=== PATIENT | male | born 1980 | race Caucasian/White ===

== ENCOUNTER 2022-07-18 12:18 | Emergency (ER) | payer MEDICARE, MEDICAID ==
--- NOTE | 2022-07-18 12:29 | ED Fall/Injury ---
General Chief Complaint: Chest Wall Stated Complaint: CHEST PAIN History of Present Illness Date Seen by Provider: Jul 18, 2022 Time Seen by Provider: 12:27 Initial Comments 42-year-old male with PMH of mental disability/CAD/3 stents placed 5 years ago/ DM2/HTN/HLD, is here with complaints of right shoulder pain and chest wall tenderness when he touches it, for the past 3 weeks after he had a fall rolling off the bed. Patient denies actual chest pain, palpitations, shortness of breath, fever, URI symptoms, abdominal pain. Allergies and Home Medications Allergies Coded Allergies: No Known Drug Allergies (Unverified , 07/18/22) Patient Home Medication List Home Medication List Reviewed: Yes Review of Systems Review of Systems Constitutional: no symptoms reported Eyes: No Symptoms Reported Ears, Nose, Mouth, Throat: no symptoms reported Respiratory: no symptoms reported Cardiovascular: no symptoms reported Gastrointestinal: no symptoms reported Genitourinary: no symptoms reported Musculoskeletal: joint pain Skin: no symptoms reported Psychiatric/Neurological: No Symptoms Reported Physical Exam Vital Signs Vital Signs - First Documented 07/18/22 12:20 Temp 36.7 Pulse 75 Resp 16 B/P (MAP) 112/76 (88) Pulse Ox 97 O2 Delivery Room Air Capillary Refill : Height, Weight, BMI Height: '" Weight: lbs. oz. kg; BMI Method: General Appearance: WD/WN, no apparent distress HEENT: PERRL/EOMI Neck: non-tender, full range of motion, supple, normal inspection Cardiovascular: regular rate, rhythm, no edema, no murmur Respiratory: lungs clear, normal breath sounds, no respiratory distress Gastrointestinal: non tender, soft Back: normal inspection, no vertebral tenderness Extremities: normal range of motion, non-tender, normal inspection Neurologic/Psychiatric: no motor/sensory deficits, alert, normal mood/affect, oriented x 3 Skin: normal color Progress/Results/Core Measures Results/Orders Lab Results Laboratory Tests Test 07/18/22 12:30 07/18/22 13:20 Range/Units White Blood Count 6.7 4.3-11.0 10^3/uL Red Blood Count 5.10 4.30-5.52 10^6/uL Hemoglobin 15.4 13.3-17.7 g/dL Hematocrit 45 40-54 % Mean Corpuscular Volume 88 80-99 fL Mean Corpuscular Hemoglobin 30 25-34 pg Mean Corpuscular Hemoglobin Concent 34 32-36 g/dL Red Cell Distribution Width 13.1 10.0-14.5 % Platelet Count 193 130-400 10^3/uL Mean Platelet Volume 10.0 9.0-12.2 fL Neutrophils (%) (Auto) 48 42-75 % Lymphocytes (%) (Auto) 38 12-44 % Monocytes (%) (Auto) 9 0-12 % Eosinophils (%) (Auto) 4 0-10 % Basophils (%) (Auto) 1 0-10 % Neutrophils # (Auto) 3.2 1.8-7.8 X 10^3 Lymphocytes # (Auto) 2.6 1.0-4.0 X 10^3 Monocytes # (Auto) 0.6 0.0-1.0 X 10^3 Eosinophils # (Auto) 0.3 0.0-0.3 10^3/uL Basophils # (Auto) 0.0 0.0-0.1 10^3/uL Prothrombin Time 11.8 L 12.2-14.7 SEC INR Comment 0.8 0.8-1.4 Activated Partial Thromboplast Time 26 24-35 SEC D-Dimer 0.35 0.00-0.49 UG/ML Sodium Level 137 135-145 MMOL/L Potassium Level 4.5 3.6-5.0 MMOL/L Chloride Level 103 98-107 MMOL/L Carbon Dioxide Level 26 21-32 MMOL/L Anion Gap 8 5-14 MMOL/L Blood Urea Nitrogen 12 7-18 MG/DL Creatinine 0.78 0.60-1.30 MG/DL Estimat Glomerular Filtration Rate 114 BUN/Creatinine Ratio 15 Glucose Level 344 H 70-105 MG/DL Calcium Level 9.3 8.5-10.1 MG/DL Corrected Calcium 9.1 8.5-10.1 MG/DL Magnesium Level 1.8 1.6-2.4 MG/DL Total Bilirubin 0.7 0.1-1.0 MG/DL Aspartate Amino Transf (AST/SGOT) 13 5-34 U/L Alanine Aminotransferase (ALT/SGPT) 28 0-55 U/L Alkaline Phosphatase 76 40-136 U/L Troponin I < 0.30 <0.30 NG/ML Total Protein 6.6 6.4-8.2 GM/DL Albumin 4.3 3.2-4.5 GM/DL Urine Color YELLOW Urine Clarity SLT CLOUDY Urine pH 5.0 5-9 Urine Specific [place] 1.020 1.016-1.022 Urine Protein NEGATIVE NEGATIVE Urine Glucose (UA) 3+ H NEGATIVE Urine Ketones NEGATIVE NEGATIVE Urine Nitrite NEGATIVE NEGATIVE Urine Bilirubin NEGATIVE NEGATIVE Urine Urobilinogen 0.2 < = 1.0 MG/DL Urine Leukocyte Esterase NEGATIVE NEGATIVE Urine RBC (Auto) NEGATIVE NEGATIVE Urine RBC NONE /HPF Urine WBC 0-2 /HPF Urine Squamous Epithelial Cells RARE /HPF Urine Crystals NONE /LPF Urine Bacteria NEGATIVE /HPF Urine Casts NONE /LPF Urine Mucus NEGATIVE /LPF Urine Culture Indicated NO Urine Opiates Screen NEGATIVE NEGATIVE Urine Oxycodone Screen NEGATIVE NEGATIVE Urine Methadone Screen NEGATIVE NEGATIVE Urine Propoxyphene Screen NEGATIVE NEGATIVE Urine Barbiturates Screen NEGATIVE NEGATIVE Ur Tricyclic Antidepressants Screen NEGATIVE NEGATIVE Urine Phencyclidine Screen NEGATIVE NEGATIVE Urine Amphetamines Screen NEGATIVE NEGATIVE Urine Methamphetamines Screen NEGATIVE NEGATIVE Urine Benzodiazepines Screen NEGATIVE NEGATIVE Urine Cocaine Screen NEGATIVE NEGATIVE Urine Cannabinoids Screen NEGATIVE NEGATIVE My Orders Orders - HAY SINGLETON MD Chest 1 View Ap/Pa Only (07/18/22 12:39) Elbow 3 View Right (07/18/22 12:39) Shoulder 3 View Right (07/18/22 12:39) Cbc With Automated Diff (07/18/22 12:40) Comprehensive Metabolic Panel (07/18/22 12:40) Fibrin Degradation Products (07/18/22 12:40) Drug Screen Stat (Urine) (07/18/22 12:40) Magnesium (07/18/22 12:40) Protime With Inr (07/18/22 12:40) Partial Thromboplastin Time (07/18/22 12:40) Ua Culture If Indicated (07/18/22 12:40) Troponin I Fs (07/18/22 12:40) Ekg Tracing (07/18/22 12:40) Continuous Ekg Monitoring (07/18/22 12:40) Ketorolac Injection (Toradol Injection) (07/18/22 14:45) Vital Signs/I&O 07/18/22 07/18/22 12:20 13:56 Temp 36.7 36.7 Pulse 75 72 Resp 16 16 B/P (MAP) 112/76 (88) 122/68 Pulse Ox 97 99 O2 Delivery Room Air Room Air Progress Progress Note : Progress Note 1. FALL/ RIGHT SHOULDER AND CHEST MUSCLE STRAIN: - CXR: normal - Labs unremarkable - Troponin undetected - EKG: Nonischemic -Toradol 30 mg IM stat -Advised Lidoderm patches and Tylenol and ibuprofen as needed for pain -Follow-up with PCP in the next 7 to 10 days -The patient was seen in the ED, and treated appropriately to presentation at a specific point in time. Patient is informed that there is a possibility that disease and illness can evolve and change in acuity rapidly or slowly after patient is discharged from the ER. Precautionary advice given to the patient for immediate return to ER if symptoms worsen or do not resolve, and to seek emergency care sooner rather than later. Pt also advised on the importance of PCP follow up and compliance with management and follow up plan with PCP and/or specialist, as this is part of the management plan. Pt verbally expressed understanding. Initial ECG Impression Date: Jul 18, 2022 Initial ECG Impression Time: 12:23 Initial ECG Rate: 69 Initial ECG Rhythm: Normal Sinus Initial ECG Intervals: Normal Initial ECG Impression: Normal Initial ECG Comparisson: No Previous ECG Available Diagnostic Imaging Diagonstic Imaging: Xray Plain Films/CT/US/NM/MRI: chest Comments [facility] [place] NAME: DAVID GAYTAN Jaree REC#: [id number] PT STATUS: REG ER : 1980 PHYSICIAN: HAY SINGLETON MD ADMIT DATE: 07/18/22/ER FS Draft Date of Exam:07/18/22 CHEST 1 VIEW AP/PA ONLY INDICATION: Chest pain and fall Frontal chest obtained at 1252 hours p.m. Heart and mediastinal silhouette are normal in appearance. The lungs are clear. There is no pneumothorax or pleural fluid. IMPRESSION: Negative chest. Dictated on workstation # [id number] Dict: 07/18/22 1323 Trans: 07/18/22 1324 [facility] [id number] Interpreted by: BG THOMPSON MD Electronically signed by: [facility] [place] NAME: DAVID GAYTAN MED REC#: [id number] PT STATUS: REG ER : 1980 PHYSICIAN: HAY SINGLETON MD ADMIT DATE: 07/18/22/ER FS Draft Date of Exam:07/18/22 ELBOW 3 VIEW RIGHT INDICATION: Fall with right elbow pain. AP, oblique, and lateral views of the right elbow are obtained. No fracture or acute bone abnormality is seen. Joint spaces are unremarkable. IMPRESSION: Negative right elbow. Dictated on workstation # [id number] Dict: 07/18/22 1257 Trans: 07/18/22 1300 [facility] [id number] Interpreted by: BG THOMPSON MD Electronically signed by: [facility] [place] [place] NAME: DAVID GAYTAN [facility] REC#: [id number] PT STATUS: REG ER : 1980 PHYSICIAN: HAY SINGLETON MD ADMIT DATE: 07/18/22/ER FS Draft Date of Exam:07/18/22 SHOULDER 3 VIEW RIGHT INDICATION: Chest pain and right shoulder pain, fall. TIME OF EXAM: 12:53 p.m. FINDINGS: Three views of the right shoulder were obtained. Glenohumeral and acromioclavicular alignment are normal. Acromiohumeral space is normal. No fracture or dislocation is identified. IMPRESSION: No acute abnormality is detected. Dictated on workstation # [id number] Dict: 07/18/22 1325 Trans: 07/18/22 1330 [facility] [id number] Interpreted by: VIRGIL VALENZUELA MD Electronically signed by: Departure Impression Primary Impression: Muscle strain of right shoulder Qualified Codes: S46.911A - Strain of unspecified muscle, fascia and tendon at shoulder and upper arm level, right arm, initial encounter Additional Impression: Chest wall muscle strain Qualified Codes: S29.011A - Strain of muscle and tendon of front wall of thorax, initial encounter Disposition: 01 HOME, SELF-CARE Condition: Stable Departure-Patient Inst. Referrals: VINCENT RIVERS DO (PCP) Primary Care Physician Patient Instructions: Muscle Strain ED Add. Discharge Instructions: -Advised Lidoderm patches and Tylenol and ibuprofen as needed for pain -Follow-up with PCP in the next 7 to 10 days All discharge instructions reviewed with patient and/or family. Voiced understanding. HAY SINGLETON MD Jul 18, 2022 12:29
[2022-07-18 12:51] LABS: HEMATOCRIT 45 % (40-54); HEMOGLOBIN 15.4 g/dL (13.3-17.7); MEAN CORPUSCULAR HEMOGLOBIN 30 pg (25-34); MEAN CORPUSCULAR HGB CONC 34 g/dL (32-36); MEAN CORPUSCULAR VOLUME 88 fL (80-99); PLATELET COUNT 193 10^3/uL (130-400); WHITE BLOOD COUNT 6.7 10^3/uL (4.3-11.0)
[2022-07-18 12:52] LABS: BASOPHILS % (AUTO) 1 % (0-10); EOSINOPHILS # (AUTO) 0.3 10^3/uL (0.0-0.3); EOSINOPHILS % (AUTO) 4 % (0-10); LYMPHOCYTES # (AUTO) 2.6 X 10^3 (1.0-4.0); LYMPHOCYTES % (AUTO) 38 % (12-44); MONOCYTES # (AUTO) 0.6 X 10^3 (0.0-1.0); MONOCYTES % (AUTO) 9 % (0-12); NEUTROPHILS # (AUTO) 3.2 X 10^3 (1.8-7.8); NEUTROPHILS % (AUTO) 48 % (42-75)
--- NOTE | 2022-07-18 13:00 | Diagnostic Imaging Report ---
INDICATION: Fall with right elbow pain. AP, oblique, and lateral views of the right elbow are obtained. No fracture or acute bone abnormality is seen. Joint spaces are unremarkable. IMPRESSION: Negative right elbow. Dictated by: Dictated on workstation # [id number]
[2022-07-18 13:10] LABS: ALANINE AMINOTRANSFERASE 28 U/L (0-55); ALBUMIN 4.3 GM/DL (3.2-4.5); ALKALINE PHOSPHATASE 76 U/L (40-136); BILIRUBIN,TOTAL 0.7 MG/DL (0.1-1.0); BUN/CREATININE RATIO 15; CALCIUM 9.3 MG/DL (8.5-10.1); CARBON DIOXIDE 26 MMOL/L (21-32); CHLORIDE 103 MMOL/L (98-107); CREATININE SERUM 0.78 MG/DL (0.60-1.30); GFR ESTIMATED 114; GLUCOSE 344 MG/DL (70-105); MAGNESIUM 1.8 MG/DL (1.6-2.4); POTASSIUM 4.5 MMOL/L (3.6-5.0); SODIUM 137 MMOL/L (135-145); TOTAL PROTEIN 6.6 GM/DL (6.4-8.2)
[2022-07-18 13:12] LABS: INR 0.8 (0.8-1.4); PROTHROMBIN TIME PATIENT 11.8 SEC (12.2-14.7)
[2022-07-18 13:13] LABS: FIBRIN DEGRADATION PRODUCTS 0.35 UG/ML (0.00-0.49)
--- NOTE | 2022-07-18 13:25 | Diagnostic Imaging Report ---
INDICATION: Chest pain and fall Frontal chest obtained at 1252 hours p.m. Heart and mediastinal silhouette are normal in appearance. The lungs are clear. There is no pneumothorax or pleural fluid. IMPRESSION: Negative chest. Dictated by: Dictated on workstation # [id number]
--- NOTE | 2022-07-18 13:30 | Diagnostic Imaging Report ---
INDICATION: Chest pain and right shoulder pain, fall. TIME OF EXAM: 12:53 p.m. FINDINGS: Three views of the right shoulder were obtained. Glenohumeral and acromioclavicular alignment are normal. Acromiohumeral space is normal. No fracture or dislocation is identified. IMPRESSION: No acute abnormality is detected. Dictated by: Dictated on workstation # [id number]
[2022-07-18 13:41] LABS: BILIRUBIN,URINE NEGATIVE (NEGATIVE); CLARITY,URINE SLT CLOUDY; COLOR,URINE YELLOW; GLUCOSE, URINE (UA) 3+ (NEGATIVE); KETONES,URINE NEGATIVE (NEGATIVE); NITRITE,URINE NEGATIVE (NEGATIVE); PROTEIN,URINE NEGATIVE (NEGATIVE)
[2022-07-18 13:42] LABS: BACTERIA,URINE NEGATIVE /HPF; LEUKOCYTE ESTERASE ,URINE NEGATIVE (NEGATIVE); SQUAMOUS EPITHELIAL CELL,UR RARE /HPF; WBC,URINE 0-2 /HPF
[2022-07-18 13:49] LABS: AMPHETAMINE SCREEN, URINE NEGATIVE (NEGATIVE); BARBITURATE SCREEN URINE NEGATIVE (NEGATIVE); BENZODIAZEPINES SCREEN URINE NEGATIVE (NEGATIVE); CANNABINOID SCREEN, URINE NEGATIVE (NEGATIVE); COCAINE SCREEN URINE NEGATIVE (NEGATIVE); METHADONE STAT NEGATIVE (NEGATIVE); OPIATE SCREEN URINE NEGATIVE (NEGATIVE); OXYCODONE STAT NEGATIVE (NEGATIVE); PROPOXYPHENE STAT NEGATIVE (NEGATIVE); TRICYCLIC ANTIDEPRESSANTS SCRE NEGATIVE (NEGATIVE)
[2022-07-18 13:56] VITALS: BP 122/68
[2022-07-18] MEDS ORDERED: KETOROLAC 30 MG/ML VIAL IM ONE (14:45)
== END 2022-07-18 14:47 | disposition home or self-care (01) ==
LOC: ER FS 12:23
DX: S46.911A Strain of unspecified muscle, fascia and tendon at shoulder and upper arm level, right arm, initial encounter (principal); S29.011A Strain of muscle and tendon of front wall of thorax, initial encounter; W06.XXXA Fall from bed, initial encounter
CPT/HCPCS: 36415; 71045; 73030; 73080; 80053; 80306; 81000; 83735; 84484; 85025; 85379; 85610; 85730; 93005

== ENCOUNTER → 2022-12-26 | Outpatient (CLI) | payer MEDICARE, MEDICAID ==
--- NOTE | 2022-12-26 14:51 | Diagnostic Imaging Report ---
PROCEDURE: MRI right joint upper extremity without contrast. TECHNIQUE: Multiplanar, multisequence [id number] MRI of the right upper extremity was accomplished. INDICATION: Right shoulder pain. COMPARISON: Radiographs from 07/18/2022. FINDINGS: No acute fracture or dislocation is seen in the right shoulder. Alignment appears normal. There is no significant joint effusion. The supraspinatus tendon demonstrates low-grade partial-thickness tearing at the bursal and articular surfaces anteriorly. There is mild thickening of the subacromial-subdeltoid bursa. There is low-grade fraying at the undersurface. The teres minor tendon is intact. The subscapularis tendon appears intact. The long head of the biceps tendon is normal in course and signal. The glenoid labrum is suboptimally evaluated in the absence of intra-articular contrast. No paralabral cyst is seen. The acromion has a curved undersurface. The coracoclavicular and coracoacromial ligaments appear intact. No focal muscular atrophy is seen. IMPRESSION: 1. Low-grade partial-thickness tearing of the supraspinatus tendon with mild subacromial-subdeltoid bursitis. Dictated by: Dictated on workstation # [id number]
== END ==
LOC: RAD 13:19
PROVIDERS: ATTEND Physical Medicine & Rehabilitation
DX: M75.111 Incomplete rotator cuff tear or rupture of right shoulder, not specified as traumatic (principal); M75.51 Bursitis of right shoulder
CPT/HCPCS: 73221